=== PATIENT | male | born 1955 | race Caucasian/White ===

== ENCOUNTER 2022-08-11 15:05 | Outpatient (RCR) | payer MEDICARE, OTHER, SELFPAY ==
[2022-01-15 08:38] LABS: Albumin* 4.4 g/dL (3.3-5.0); Basophils Absolute Auto 0.01 K/uL (0.00-0.30); Basophils Percent Auto 0.2 % (0.0-3.0); Chloride* 107 mmol/L (96-114); Eosinophils Absolute Auto 0.06 K/uL (0.00-0.50); Eosinophils Percent Auto 1.1 % (0.0-7.0); Hematocrit 41.2 % (37.0-53.0); Immature Granulocytes Abs Auto 0.01 K/uL (0.00-0.30); Lymphocytes Absolute Auto 1.72 K/uL (0.90-2.90); Lymphocytes Percent Auto 31.9 % (20-44); Mean Corpuscular HGB Conc 34 gm/dL (32-36); Mean Corpuscular Hemoglobin 30 pg (26-34); Mean Corpuscular Volume 88 fL (80-100); Monocytes Percent Auto 8.1 % (0.0-11.0); Neutrophils Absolute Auto 3.16 K/uL (1.7-7.0); Neutrophils Percent Auto 58.5 % (42.0-72.0); Platelet Count* 147 K/uL (140-440); RDW Coefficient of Variation % 12.7 % (11.5-15.5); Red Blood Count 4.69 m/uL (4.30-5.90)
[2022-01-15 08:39] LABS: Potassium* 3.5 mmol/L (3.6-5.1); Sodium* 139 mmol/L (135-149)
[2022-01-15 08:41] LABS: Aspartate Amino Transferase* 44 U/L (12-35); Bilirubin Total* 0.5 mg/dL (0.1-1.5); Carbon Dioxide* 24 mmol/L (20-32); Estimated Glomerular Filt Rate 82.49; Total Protein* 6.8 g/dL (6.0-8.3)
[2022-01-15 08:42] LABS: Alanine Aminotransferase* 45 U/L (4-50); Alkaline Phosphatase* 118 U/L (40-150); Blood Urea Nitrogen* 14 mg/dL (7-30); Calcium* 8.2 mg/dL (8.4-10.6); Glucose* 127 mg/dL (60-115); Slide Review Reflex No
[2022-01-17 03:46] LABS: Tacrolimus by HPLC-MS/MS 2.6 ng/mL
[2022-08-11 16:22] LABS: Basophils Absolute Auto 0.02 K/uL (0.00-0.30); Basophils Percent Auto 0.3 % (0.0-3.0); Eosinophils Absolute Auto 0.11 K/uL (0.00-0.50); Eosinophils Percent Auto 1.6 % (0.0-7.0); Hemoglobin* 14.4 gm/dL (13.5-17.5); Immature Granulocytes Abs Auto 0.01 K/uL (0.00-0.30); Immature Granulocytes Pct Auto 0.1 %; Lymphocytes Absolute Auto 2.61 K/uL (0.90-2.90); Lymphocytes Percent Auto 36.9 % (20-44); Mean Corpuscular HGB Conc 34 gm/dL (32-36); Mean Corpuscular Hemoglobin 30 pg (26-34); Mean Corpuscular Volume 89 fL (80-100); Monocytes Percent Auto 7.6 % (0.0-11.0); Neutrophils Absolute Auto 3.78 K/uL (1.7-7.0); Neutrophils Percent Auto 53.5 % (42.0-72.0); Platelet Count* 177 K/uL (140-440); RDW Coefficient of Variation % 12.6 % (11.5-15.5); Red Blood Count 4.82 m/uL (4.30-5.90); White Blood Count* 7.07 K/uL (4.50-11.00)
[2022-08-11 16:25] LABS: Albumin* 4.4 g/dL (3.3-5.0); Chloride* 106 mmol/L (96-114); Sodium* 141 mmol/L (135-149)
[2022-08-11 16:27] LABS: Estimated Glomerular Filt Rate 82 ml/min
[2022-08-11 16:28] LABS: Alanine Aminotransferase* 190 U/L (4-50); Alkaline Phosphatase* 275 U/L (40-150); Aspartate Amino Transferase* 52 U/L (12-35); Bilirubin Total* 0.6 mg/dL (0.1-1.5); Blood Urea Nitrogen* 18 mg/dL (7-30); Carbon Dioxide* 26 mmol/L (20-32); Glucose* 118 mg/dL (60-115); Total Protein* 7.1 g/dL (6.0-8.3)
[2022-08-11 16:32] LABS: Slide Review Reflex No
[2022-08-14 07:48] LABS: Tacrolimus by HPLC-MS/MS 2.8 ng/mL
[2022-10-14 12:05] LABS: Albumin* 4.4 g/dL (3.3-5.0)
[2022-10-14 12:06] LABS: Chloride* 104 mmol/L (96-114); Potassium* 4.3 mmol/L (3.6-5.1); Sodium* 139 mmol/L (135-149)
[2022-10-14 12:08] LABS: Aspartate Amino Transferase* 27 U/L (12-35); Bilirubin Total* 0.4 mg/dL (0.1-1.5); Carbon Dioxide* 27 mmol/L (20-32); Estimated Glomerular Filt Rate 82 ml/min; Total Protein* 6.9 g/dL (6.0-8.3)
[2022-10-14 12:09] LABS: Alanine Aminotransferase* 26 U/L (4-50); Alkaline Phosphatase* 132 U/L (40-150); Blood Urea Nitrogen* 18 mg/dL (7-30); Calcium* 8.9 mg/dL (8.4-10.6); Glucose* 124 mg/dL (60-115)
== END 2023-07-18 21:25 | disposition home or self-care (01) ==
LOC: LAB 15:05
PROVIDERS: PCP Internal Medicine; Visit Provider Internal Medicine Gastroenterology
DX: Z94.4 Liver transplant status (principal); Z79.899 Other long term (current) drug therapy
CPT/HCPCS: 36415; 80053; 80061; 80197; 84153; 85025

== ENCOUNTER 2022-12-24 08:14 | Outpatient (CLI) | payer MEDICARE, OTHER, SELFPAY | END 2022-12-24 08:15 | disposition home or self-care (01) | LOC: FRMREF 08:16 | PROVIDERS: PCP Internal Medicine; Visit Provider Family Medicine | DX: J06.9 Acute upper respiratory infection, unspecified (principal); J32.9 Chronic sinusitis, unspecified; Z94.4 Liver transplant status | CPT/HCPCS: 80053 ==

== ENCOUNTER 2023-08-04 08:26 | Outpatient (CLI) | payer MEDICARE, OTHER, SELFPAY ==
[2023-08-04 13:14] LABS: Lab Add On Test New Spec Needed
== END 2023-08-04 08:27 | disposition home or self-care (01) ==
PROVIDERS: PCP Internal Medicine; Visit Provider Internal Medicine
DX: I10 Essential (primary) hypertension (principal); E78.5 Hyperlipidemia, unspecified; E29.1 Testicular hypofunction
CPT/HCPCS: 80053; 80061; G0103

== ENCOUNTER 2023-08-13 13:49 | Outpatient (RCR) | payer MEDICARE, OTHER, SELFPAY ==
[2023-08-13 14:46] LABS: Basophils Absolute Auto 0.01 K/uL (0.00-0.30); Basophils Percent Auto 0.1 % (0.0-3.0); Eosinophils Absolute Auto 0.17 K/uL (0.00-0.50); Eosinophils Percent Auto 2.5 % (0.0-7.0); Hematocrit 42.3 % (37.0-53.0); Hemoglobin* 14.2 gm/dL (13.5-17.5); Immature Granulocytes Abs Auto 0.04 K/uL (0.00-0.30); Immature Granulocytes Pct Auto 0.6 %; Lymphocytes Percent Auto 36.4 % (20-44); Mean Corpuscular HGB Conc 34 gm/dL (32-36); Mean Corpuscular Hemoglobin 29 pg (26-34); Mean Corpuscular Volume 87 fL (80-100); Monocytes Percent Auto 8.6 % (0.0-11.0); Neutrophils Absolute Auto 3.55 K/uL (1.7-7.0); Neutrophils Percent Auto 51.8 % (42.0-72.0); Platelet Count* 178 K/uL (140-440); RDW Coefficient of Variation % 13.1 % (11.5-15.5); Red Blood Count 4.86 m/uL (4.30-5.90); White Blood Count* 6.86 K/uL (4.50-11.00)
[2023-08-13 15:06] LABS: Slide Review Reflex No
[2023-08-15 09:41] LABS: Tacrolimus by HPLC-MS/MS 3.5 ng/mL
== END 2024-07-21 14:36 | disposition home or self-care (01) ==
LOC: LAB 13:49
PROVIDERS: PCP Internal Medicine; Visit Provider Internal Medicine Gastroenterology
DX: Z94.4 Liver transplant status (principal)
CPT/HCPCS: 36415; 80197; 85025

== ENCOUNTER 2024-03-06 08:02 | Outpatient (CLI) | payer MEDICARE, OTHER, SELFPAY | END 2024-03-06 08:03 | disposition home or self-care (01) | PROVIDERS: PCP Internal Medicine; Visit Provider Physician Assistant Medical | DX: I10 Essential (primary) hypertension (principal); Z79.621 Long term (current) use of calcineurin inhibitor; Z94.4 Liver transplant status | CPT/HCPCS: 80053; 80197 ==

== ENCOUNTER 2024-08-08 09:21 | Outpatient (CLI) | payer MEDICARE, OTHER, SELFPAY | END 2024-08-08 09:22 | disposition home or self-care (01) | PROVIDERS: PCP Internal Medicine; Visit Provider Internal Medicine | DX: N40.0 Benign prostatic hyperplasia without lower urinary tract symptoms (principal); I10 Essential (primary) hypertension; E78.5 Hyperlipidemia, unspecified; Z12.5 Encounter for screening for malignant neoplasm of prostate | CPT/HCPCS: 80053; 80061; G0103 ==

== ENCOUNTER 2024-08-09 13:34 | Outpatient (REF) | payer MEDICARE, OTHER, SELFPAY ==
[2024-08-12 10:39] LABS: Tacrolimus by HPLC-MS/MS 4.4 ng/mL
== END 2024-08-09 13:35 | disposition home or self-care (01) ==
LOC: NPINS 13:34
PROVIDERS: PCP Internal Medicine; Visit Provider Internal Medicine Gastroenterology
DX: Z94.4 Liver transplant status (principal); Z79.899 Other long term (current) drug therapy
CPT/HCPCS: 80197

== ENCOUNTER 2024-08-30 07:25 | Outpatient (CLI) | payer MEDICARE, OTHER, SELFPAY ==
[2024-08-30 14:48] LABS: Basophils Absolute Auto 0.01 K/uL (0.00-0.30); Basophils Percent Auto 0.1 % (0.0-3.0); Eosinophils Percent Auto 1.3 % (0.0-7.0); Hematocrit 43.1 % (37.0-53.0); Hemoglobin* 14.4 gm/dL (13.5-17.5); Immature Granulocytes Abs Auto 0.01 K/uL (0.00-0.30); Immature Granulocytes Pct Auto 0.1 %; Lymphocytes Absolute Auto 2.75 K/uL (0.90-2.90); Lymphocytes Percent Auto 35.1 % (20-44); Mean Corpuscular HGB Conc 33 gm/dL (32-36); Mean Corpuscular Hemoglobin 29 pg (26-34); Mean Corpuscular Volume 87 fL (80-100); Monocytes Percent Auto 6.9 % (0.0-11.0); Neutrophils Absolute Auto 4.42 K/uL (1.7-7.0); Neutrophils Percent Auto 56.5 % (42.0-72.0); Platelet Count* 147 K/uL (140-440); RDW Coefficient of Variation % 12.3 % (11.5-15.5); Red Blood Count 4.93 m/uL (4.30-5.90); White Blood Count* 7.83 K/uL (4.50-11.00)
[2024-08-30 14:49] LABS: Slide Review Reflex No
== END 2024-08-30 07:26 | disposition home or self-care (01) ==
LOC: NPINS 07:26
PROVIDERS: PCP Internal Medicine; Visit Provider Internal Medicine Gastroenterology
DX: Z94.4 Liver transplant status (principal); Z79.899 Other long term (current) drug therapy
CPT/HCPCS: 80053; 80197; 85025

== ENCOUNTER 2024-08-31 07:11 | Outpatient (CLI) | payer MEDICARE, OTHER, SELFPAY ==
--- NOTE | 2024-08-31 08:47 | W.ANESCHARGE ---
Anesthesia Charges Start Date/Time Anesthesia Start Date: 08/31/24 Anesthesia Start Time: 08:00 Stop Date/Time Anesthesia Stop Date: 08/31/24 Anesthesia Stop Time: 08:46 Summary Extremes of Age - Over 70 or under 1: ACCOUNT STRATEGIST Coding CPT Codes CPT Codes: ANES LWR INTST NDSC NOS - [id number] ([id number]) P3 - PATIENT W/SEVERE SYS DISEASE, QK - EXHAUST AND MUFFLER FITTER 2-4 CNCRNT ANES PROC, QX - ACCOUNT STRATEGIST SVC W/ MD MED DIRECTION Additional Codes: Summary - Extremes of Age - Over 70 or under 1: ACCOUNT STRATEGIST ([id number])
--- NOTE | 2024-08-31 08:51 | W.ANESCHARGE ---
Anesthesia Charges Start Date/Time Anesthesia Start Date: 08/31/24 Anesthesia Start Time: 08:00 Stop Date/Time Anesthesia Stop Date: 08/31/24 Anesthesia Stop Time: 08:46 Summary Extremes of Age - Over 70 or under 1: MDA Coding CPT Codes CPT Codes: ANES LWR INTST NDSC NOS - [id number] ([id number]) QK - SUPERINTENDENT PRESSURE 2-4 CNCRNT ANES PROC, QX - DISTRIBUTION SUPERVISOR SVC W/ MD MED DIRECTION, P3 - PATIENT W/SEVERE SYS DISEASE Additional Codes: Summary - Extremes of Age - Over 70 or under 1: MDA ([id number])
== END 2024-08-31 07:12 | disposition home or self-care (01) ==
PROVIDERS: PCP Internal Medicine; Visit Provider Surgery
DX: Z12.11 Encounter for screening for malignant neoplasm of colon (principal); D12.0 Benign neoplasm of cecum; D12.2 Benign neoplasm of ascending colon; K64.9 Unspecified hemorrhoids; K57.30 Diverticulosis of large intestine without perforation or abscess without bleeding
CPT/HCPCS: 00811; 00812; 45385; 88305; 99100; J2704

== ENCOUNTER 2025-03-21 07:43 | Outpatient (CLI) | payer MEDICARE, OTHER, SELFPAY ==
[2025-03-21 13:47] LABS: Hematocrit* 42.8 % (37.0-53.0); Hemoglobin* 14.3 gm/dL (13.5-17.5); Immature Granulocytes Abs Auto 0.02 K/uL (0.00-0.30); Immature Granulocytes Pct Auto 0.3 %; Lymphocytes Absolute Auto 2.83 K/uL (0.90-2.90); Mean Corpuscular HGB Conc 33 gm/dL (32-36); Mean Corpuscular Hemoglobin 30 pg (26-34); Mean Corpuscular Volume 89 fL (80-100); RDW Coefficient of Variation % 12.8 % (11.5-15.5); Red Blood Count* 4.83 m/uL (4.30-5.90); White Blood Count* 7.30 K/uL (4.50-11.00)
[2025-03-21 13:49] LABS: Slide Review Reflex No
[2025-03-21 14:17] LABS: Albumin* 4.0 g/dL (3.3-5.0); Chloride* 104 mmol/L (96-114); Potassium* 4.0 mmol/L (3.6-5.1); Sodium* 137 mmol/L (135-149)
[2025-03-21 14:20] LABS: Alanine Aminotransferase* 28 U/L (4-50); Alkaline Phosphatase* 106 U/L (40-150); Anion Gap 5 mEq/L (7-15); Aspartate Amino Transferase* 26 U/L (12-35); Bilirubin Total* 0.4 mg/dL (0.1-1.5); Blood Urea Nitrogen* 17 mg/dL (7-30); Calcium* 9.1 mg/dL (8.4-10.6); Carbon Dioxide* 28 mmol/L (20-32); Creatinine* 1.0 mg/dL (0.5-1.5); Estimated Glomerular Filt Rate 81 ml/min; Glucose* 114 mg/dL (60-115); Total Protein* 6.3 g/dL (6.0-8.3)
== END 2025-03-21 07:44 | disposition home or self-care (01) ==
LOC: NPINS 07:44
PROVIDERS: PCP Internal Medicine; Visit Provider Internal Medicine Gastroenterology
DX: Z94.4 Liver transplant status (principal); Z79.899 Other long term (current) drug therapy
CPT/HCPCS: 80053; 80197; 85025